=== PATIENT | female | born 1965 | race Asian ===

== ENCOUNTER → 2018-07-21 | Outpatient (CLI) | payer OTHER ==
[2018-07-23 21:03] LABS: GASTRIN SERUM 100 pg/mL (0-115)
[2018-07-25 14:58] LABS: CHROMOGRANIN A 1 nmol/L (0-5)
== END ==
LOC: OD 14:13
PROVIDERS: ATTEND Surgery
DX: K86.2 Cyst of pancreas (principal)
CPT/HCPCS: 36415; 82941; 86316